=== PATIENT | male | born 1990 | race Caucasian/White ===

== ENCOUNTER 2021-05-31 18:57 | Emergency (ER) | payer OTHER ==
[~2021-05-31 18:57] MED LIST: BENTYL 10MG CAP10 MG PO; IBUPROFEN600 MG PO; ZOFRAN4 MG PO
[2021-05-31] MEDS ORDERED: AMOXICILLIN250 MG PO (22:29)
== END 2021-05-31 22:45 | disposition home or self-care (01) ==
LOC: ER1 18:57
DX: S01.511A Laceration without foreign body of lip, initial encounter (principal); Z88.7 Allergy status to serum and vaccine; F17.200 Nicotine dependence, unspecified, uncomplicated; Z23 Encounter for immunization; W01.10XA Fall on same level from slipping, tripping and stumbling with subsequent striking against unspecified object, initial encounter; Y92.009 Unspecified place in unspecified non-institutional (private) residence as the place of occurrence of the external cause
CPT/HCPCS: 12011; 90471; 90715; 99282